=== PATIENT | male | born 1980 | race Caucasian/White ===

== ENCOUNTER 2023-07-30 23:18 | Inpatient (IN) | payer OTHER, SELFPAY ==
--- NOTE | ~2023-07-30 | XR_ITS ---
EXAMINATION: XR chest 1V portable DATE: 07/30/2023 23:46 INDICATION: Chest wall pain. TECHNIQUE: A single frontal view of the chest was obtained. COMPARISON: Chest 2 views 10/13/2018 FINDINGS: There is no pneumonia, pleural effusion, or pneumothorax. The heart size is normal. IMPRESSION: 1. No acute cardiopulmonary disease. Reviewed, dictated and finalized at location E.
--- NOTE | ~2023-07-30 | CT_ITS ---
Clinical Indication: Chest pain CT Scan of the Chest with Contrast: Technique: Contiguous sections were acquired throughout the chest after intravenous administration of 100 cc of Omnipaque 350. Dose reduction technique was used on this scan by utilizing automated expos ure control and iterative reconstruction technique. The dose-length product (DLP) was 594.11 mGy-cm. Findings: There is no evidence of any significant mediastinal, hilar or axillary lymphadenopathy. There is no f illing defect in the pulmonary arterial tree to suggest pulmonary embolus. There is no evidence of ao rtic dissection or aneurysm. There is no evidence of pleural or pericardial effusion. The lungs are clear. No pulmonary nodules or infiltrates are noted. Images through the upper abdomen reveal no abnormalities. Impression: No evidence of pulmonary embolus, aortic dissection, or aortic aneurysm. Clear lungs. Reviewed, dictated and finalized at [facility]. Impression: No evidence of pulmonary embolus, aortic dissection, or aortic aneurysm. Clear lungs.
[2023-07-30 23:17] VITALS: BP 140/86; PULSE 106; RESP 20; TEMP 36.8; O2SAT 96
--- NOTE | 2023-07-30 23:22 | ECG_ITS ---
Measurements Intervals [place] Rate: 90 P: 35 CO: 203 QRS: 53 QRSD: 96 T: 49 QT: 326 QTc: 400 Interpretive Statements SINUS RHYTHM NONSPECIFIC ST & T-WAVE ABNORMALITY POOR R WAVE PROGRESSION NO PREVIOUS ECG AVAILABLE FOR COMPARISON Electronically Signed On 07-31-2023 14:58:19 CDT by Jayshree Mays M.D.
[2023-07-30 23:29] VITALS: PULSE 90
[2023-07-30 23:33] VITALS: O2SAT 98
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
[2023-07-30 23:45] LABS: Basophils Percent Auto 0.6 % (0.2-1.2); Eosinophils Absolute Auto 0.1 K/mm3 (0-0.3); Eosinophils Percent Auto 1.9 % (0-4.4); Hemoglobin 12.9 g/dL (14.0-18.0); Immature Granulocyte Absolute 0.01 K/mm3 (0.00-0.031); Immature Granulocyte Percent A 0.2 % (0-0.5); Lymphocytes Absolute Auto 1.29 K/mm3 (0.9-3.2); Lymphocytes Percent Auto 20.1 % (18.3-44.2); Mean Corpuscular HGB Conc 33.9 g/dl (32-36); Mean Corpuscular Hemoglobin 33.2 pg (26-34); Mean Corpuscular Volume 97.9 fl (80-100); Monocytes Absolute Auto 0.4 K/mm3 (0.1-0.6); Monocytes Percent Auto 6.4 % (2.6-8.5); Neutrophils Absolute Auto 4.6 K/mm3 (1.3-6.7); Neutrophils Percent Auto 70.8 % (45.5-73.1); Platelet Count Result 181 k/mm3 (150-375); Red Blood Count 3.88 M/mm3 (4.6-6.20); Red Cell Distribution Width 11.6 % (11.5-14.5); White Blood Count 6.4 K/mm3 (4.5-10.0)
--- NOTE | 2023-07-30 23:45 | ED.SYNCOPE ---
HPI - Syncope General Chief Complaint: Syncope Stated Complaint: POST CARDIAC ARREST, ROSC IN FIELD Time Seen by Provider: 07/30/23 23:27 History of Present Illness [facility] narrative: Patient brought to the emergency department by EMS. He was ice-skating playing hockey. Skated across the rink and felt lightheaded. He did patient then had a syncopal event and was noted to be pulseless. 2 rounds of CPR and AED was placed. Shock was advised and patient received 1 shock. A third round of CPR was completed and the patient had return of vital signs and resolved asystole. Patient now alert and oriented x4. Denies any significant medical problems except having some bright red blood in his stool and saw his PCP over the past couple months only now complaining of chest wall pain. EMS contributed to the history Related Data Allergies Allergy/AdvReac Type Severity Reaction Status Date / Time No Known Allergies Allergy Unverified 03/19/23 20:00 Review of Systems Review of Systems: Review of systems negative except for what was documented in the HPI [facility] Past Medical History Medical History (Updated 07/31/23 @ 04:37 by Светлана Paul MD) No significant past medical history Surgical History Surgical History (Updated 03/20/23 @ 05:49 by Ray Khan MD) No significant past surgical history Social History Social History (Updated 03/20/23 @ 05:49 by Ray Khan MD) Smoking status: Never smoker Alcohol intake: current Drinks per week: 1 Substance use: never Exam Narrative: GENERAL: Well-appearing, well-nourished, and in no acute distress. HEAD: Normocephalic, atraumatic. EYES: PERRLA and EOMI. ENT: Nares clear, no rhinorrhea or epistaxis. Mucous membranes moist. NECK: Supple. CHEST: Clear to auscultation. No respiratory distress. wall tenderness HEART: Regular rate and rhythm. ABDOMEN: Soft, nontender, nondistended. EXTREMITIES: Normal range of motion. No edema. SKIN: Warm, dry, no rash. NEURO: No focal deficits. Alert and oriented x3. PSYCH: Normal mood and affect. Course Course Emergency Course: Differential diagnosis includes but not limited to CAD, electrolyte abnormality, PE Telemetry ordered due to asystole to evaluate for dysrhythmias. Evaluated by myself. Rhythm nsr Rate 90 Due to high probability of clinically significant lift threatening deterioration, the patient required my highest level of preparedness to intervene emergently. Critical care time documented not including procedures needed Vital Signs Vital signs: Vital Signs Temperature 36.8 C 07/30/23 23:17 Pulse Rate 106 H 07/30/23 23:17 Respiratory Rate 20 07/30/23 23:17 Blood Pressure 140/86 07/30/23 23:17 Pulse Oximetry 96 07/30/23 23:17 Oxygen Delivery Room Air 07/30/23 23:17 Temperature 36.8 C 07/30/23 23:17 Pulse Rate 83 07/31/23 03:05 Respiratory Rate 14 07/31/23 03:05 Blood Pressure 127/85 07/31/23 03:05 Pulse Oximetry 98 07/31/23 03:05 Oxygen Delivery Room Air 07/30/23 23:33 MDM - Syncope MDM Narrative Medical decision making narrative: Troponin and D-dimer elevated. CTA chest ordered and pending. Patient is comfortable. Due to cardiac event and elevated troponin, heparin drip ordered. We will plan for admission for cardiology consult [id number] CTA chest pending Lab Data 07/30/23 23:31 07/30/23 23:31 Labs: Lab Results 07/30/23 07/31/23 Range/Units 23:31 02:27 WBC 6.4 (4.5-10.0) K/mm3 RBC 3.88 L (4.6-6.20) M/mm3 Hgb 12.9 L (14.0-18.0) g/dL Hct 38.0 L (42.0-52.0) % MCV 97.9 (80-100) fl MCH 33.2 (26-34) pg MCHC 33.9 (32-36) g/dl RDW 11.6 (11.5-14.5) % Plt Count 181 (150-375) k/mm3 MPV 10.0 (7.4-10.4) fl Immature Gran % (Auto) 0.2 (0-0.5) % Neut % (Auto) 70.8 (45.5-73.1) % Lymph % (Auto) 20.1 (18.3-44.2) % [place] % (Auto) 6.4 (2.6-8.5) % Eos % (
[2023-07-30 23:57] LABS: Alanine Aminotransferase 86 U/L (6-50); Albumin Level 4.4 g/dL (3.5-5.1); Alkaline Phosphatase 45 U/L (38-126); Anion Gap 15 mmol/L (8-16); Aspartate Amino Transferase 68 U/L (17-59); Bilirubin,Total 0.8 mg/dL (0.2-1.3); Blood Urea Nitrogen 18 mg/dL (9-20); Calcium 9.2 mg/dL (8.4-10.2); Carbon Dioxide 19 mmol/L (22-30); Chloride 108 mmol/L (98-107); Estimated CRCL calculation 69 ml/min; Estimated Glomerular Filt Rate 60; Glucose 120 mg/dL (65-110); Potassium 3.4 mmol/L (3.4-5.0); Sodium 142 mmol/L (137-145)
[2023-07-31] VITALS (34 sets, daily range): BP systolic 112–157; BP diastolic 65–92; PULSE 61–86; RESP 12–24; TEMP 36.4–37.1; O2SAT 97–100; BMI 29.0
--- NOTE | 2023-07-31 | ECHO_ITS ---
Patient Info Name: Boo Davies Age: 43 years : 1980 Gender: Male Ht: 71 in Wt: 209 lbs BSA: 2.20 m2 HR: 82 bpm BP: 145 / 86 mmHg Heart Rhythm: Sinus Rhythm Technical Quality: Good Exam Date: 07/31/2023 3:10 PM Exam Location: [facility] Patient Status: Inpatient Admit Date: 07/31/2023 Staff Ordering Physician: Felicia Munoz DO Dowel Machine Operator: Katherine Freire RDCS Attending Provider: Felicia Munoz DO Referring Physician: Tammy ADEN; Exam Type: CA echo dop color flow w con Study Info Indications - Cardiac arrest Complete two-dimensional, color flow and Doppler transthoracic echocardiogram is performed with contrast to opacify the left ventricle and to improve the deliniation of the left ventricle endocardial borders. Contrast/Agitated Saline Contrast/Ag. Saline: Definity Amount: 2.00 ml Administered By: Katherine Freire RDCS Existing IV Access: Yes IV Access Condition: patent with no signs of infiltration Summary 1. Technically difficult study. Definity contrast administered. 2. Left ventricular chamber dimension is normal. 3. Left ventricular systolic function is normal, estimated at 60-65% with hypokinesis the apex and apical septum. No clearly visualized left ventricle apical thrombus identified although there was sluggish flow at the apex. 4. There is no increased left ventricular wall thickness. 5. The left ventricular diastolic function is normal. 6. There is mild mitral valve regurgitation. 7. There is trace tricuspid valve regurgitation. 8. No pulmonary hypertension, estimated pulmonary arterial systolic pressure is 26 mmHg. 9. There is no aortic valve stenosis. Left Ventricle Left ventricular chamber dimension is normal. Left ventricular systolic function is normal, estimated at 60-65% with hypokinesis the apex and apical septum. No clearly visualized left ventricle apical thrombus identified although there was sluggish flow at the apex. There is no increased left ventricular wall thickness. The left ventricular diastolic function is normal. Technically difficult study. Definity contrast administered. Right Ventricle Right ventricular chamber dimension is normal. Right ventricular systolic function is normal. Left Atria Left atrial chamber dimension is normal. Right Atria Right atrial chamber dimension is normal. Aortic Valve The aortic valve is trileaflet. There is no aortic valve stenosis. There is no aortic valve regurgitation. Pulmonic Valve The pulmonic valve is not well visualized. There is mild pulmonic regurgitation. Mitral Valve The mitral valve has normal leaflets. There is mild mitral valve regurgitation. Tricuspid Valve The tricuspid valve leaflets are normal. There is trace tricuspid valve regurgitation. No pulmonary hypertension, estimated pulmonary arterial systolic pressure is 26 mmHg. Inferior Vena Cava Normal inferior vena cava with <50% collapse upon inspiration consistent with elevated right atrial pressure, 10 mmHg. Aorta The aortic root size at the sinus of Valsalva is normal. Left Ventricular Outflow Tract Name Value Normal LVOT 2D LVOT Diameter 2.05 cm LVOT Doppler
--- NOTE | 2023-07-31 00:03 | PC.NURSE ---
called lab to add D-dimer on to the blue top that was already sent
[2023-07-31 00:11] LABS: Troponin I 0.064 ng/mL (0.000-0.034)
[2023-07-31] MEDS: HEPARIN SODIUM 5,000 UNITS/ML VIAL 4000 UNITS IV PUSH ×2 (04:06→14:44)
[2023-07-31] MEDS: HEPARIN SOD/D5W 100 UNITS/ML 25,000 UNITS/250 ML BAG 10 UNITS IV CONT (04:07)
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
[2023-07-31 04:57] LABS: Basophils Percent Auto 0.4 % (0.2-1.2); Eosinophils Percent Auto 0.1 % (0-4.4); Hematocrit 37.4 % (42.0-52.0); Hemoglobin 12.6 g/dL (14.0-18.0); Immature Granulocyte Absolute 0.06 K/mm3 (0.00-0.031); Immature Granulocyte Percent A 0.5 % (0-0.5); Lymphocytes Absolute Auto 0.71 K/mm3 (0.9-3.2); Lymphocytes Percent Auto 6.3 % (18.3-44.2); Mean Corpuscular HGB Conc 33.7 g/dl (32-36); Mean Corpuscular Hemoglobin 32.4 pg (26-34); Mean Corpuscular Volume 96.1 fl (80-100); Mean Platelet Volume 9.6 fl (7.4-10.4); Monocytes Absolute Auto 0.5 K/mm3 (0.1-0.6); Monocytes Percent Auto 4.4 % (2.6-8.5); Neutrophils Absolute Auto 9.9 K/mm3 (1.3-6.7); Neutrophils Percent Auto 88.3 % (45.5-73.1); Platelet Count Result 164 k/mm3 (150-375); Red Blood Count 3.89 M/mm3 (4.6-6.20); Red Cell Distribution Width 11.7 % (11.5-14.5); White Blood Count 11.2 K/mm3 (4.5-10.0)
[2023-07-31 05:04] LABS: INR 1.2; Prothrombin Time 15.4 Seconds (11.1-14.7)
[2023-07-31 05:07] LABS: Partial Thromboplastin Time 141.9 SECONDS (22.3-36.8)
--- NOTE | 2023-07-31 05:46 | ADMGEN ---
This patient, Boo Davies, was admitted to Intensive Care Unit-7. Patient/family oriented to hospital policies and general routines including ID bracelet, bed and alarms, visiting hours, pain management, procedures, bathroom and other care routines, personal items, smoking policy, room service/diet, and visiting hours. Information on how to activate the Rapid Response Team has been discussed. Patient/Family are encouraged to report perceived risks to care and to ask questions if they do not understand what they are told or what they should do.
[2023-07-31 06:59] LABS: Cholesterol 144 mg/dL (0-200); HDL Direct 41 mg/dL; Triglycerides 40 mg/dL (<150)
[2023-07-31 07:15] LABS: LDL Cholesterol Direct 83 mg/dL
[2023-07-31] MEDS: CHOLECALCIFEROL 1,000 UNITS TABLET 5000 UNITS PO (08:13)
[2023-07-31] MEDS: ASPIRIN 81 MG CHEWABLE TABLET 324 MG PO (08:15)
[2023-07-31] MEDS: ATORVASTATIN 40 MG TABLET PO (08:15)
--- NOTE | 2023-07-31 08:31 | WPDCNINT ---
Assessment and Plan Assessment and plan (1) Cardiac arrest: Code(s): I46.9 - Cardiac arrest, cause unspecified Status: Acute Assessment and Plan: Likely VFib/V-tach cardiac arrest since patient did receive defibrillation from the ED, Patient had a cardiac arrest while playing ice hockey, there was a EMS was also playing ice hockey, once patient collapsed CPR was started, patient received 2 rounds of CPR, 1 shock from the AICD and 1 more round of CPR post a ED before obtaining ROSC. -post ROSC patient was awake, alert, oriented and was brought to the ER. -EKG showed sinus rhythm -ER physician discussed with Cardiology, recommended starting aspirin, heparin infusion -cardiology has been consulted, await their recommendation, patient likely need ischemic workup (2) Acute non-ST elevation myocardial infarction (NSTEMI): Code(s): I21.4 - Non-ST elevation (NSTEMI) myocardial infarction Status: Acute Assessment and Plan: Patient with cardiac arrest and elevated troponin (0.064--> 1.670--> 2.840.) -continue heparin infusion -cardiology to evaluate (3) Essential hypertension: Code(s): I10 - Essential (primary) hypertension Status: Acute Assessment and Plan: Essential hypertension, currently blood pressures are stable patient was started on lisinopril (4) Transaminitis: Code(s): R74.01 - Elevation of levels of liver transaminase levels Status: Acute Assessment and Plan: Patient has mild elevation in LFTs, could be related to cardiac arrest. Patient also has history of hepatic steatosis which could be a cause. (5) Rectal bleed: Code(s): K62.5 - Hemorrhage of anus and rectum Status: Acute Assessment and Plan: Patient states he has bright red blood on the toilet tissue after bowel movements -his he was supposed to get a colonoscopy on 08/01/2023 -will have GI evaluate the patient -hemoglobin remains stable Plan DVT prophylaxis: Heparin infusion Stress ulcer prophylaxis: Famotidine Nutrition: NPO for now Code Status: Full code Critical Care Time Spent: 49 minutes Due to a high probability of clinically significant, life threatening deterioration, the patient required my highest level of preparedness to intervene emergently and I personally spent this critical care time directly and personally managing the patient. This critical care time included obtaining a history; examining the patient; pulse oximetry; ordering and review of studies; arranging urgent treatment with development of a management plan; evaluation of patient's response to treatment; frequent reassessment; and discussions with other providers. It was exclusive of separately billable procedures and treating other patients and teaching time. Please see Assessment and Plan section and the rest of the note for further information on patient assessment and treatment This dictation may have been done utilizing a voice recognition system. Attempts have been made to correct errors. However, there may be uncorrected grammatical, spelling, and recognitions errors present. Attorney Law Clerk Consult Note Consult date: 07/31/23 Reason for consult: Cardiac arrest HPI: Boo Davies is a 43 year old male with past medical history of hypertension, GERD, hyperlipidemia, seasonal allergies presented the ED on 07/30/2023 status post cardiac arrest with ROSC in the field. Patient apparently had 2 rounds of CPR followed by a shock from the ED additional round of CPR before ROSC. Post arrest patient was alert and oriented x3. According to records patient was playing ice hockey with a different team and since they were short on the players he was skating for a longer amount of time than normal and the playing at a brisk pace than he is used to. Patient stated that he felt lightheaded and possibly had a fall and does not remember anything until he woke up with people standing around him. Is also been complai
--- NOTE | 2023-07-31 09:54 | PM.CNCAR ---
Assessment and Plan Assessment and plan (1) Cardiac arrest with successful resuscitation: Code(s): I46.9 - Cardiac arrest, cause unspecified Status: Acute Assessment and Plan: Likely VT/VF given defibrillation from AED. Echocardiogram pending. Recommended cardiac catheterization. Discussed the procedure details with the patient, including indication for procedure, risks vs benefits, alternative management options. Patient agreeable. Will cath him today. (2) Acute non-ST elevation myocardial infarction (NSTEMI): Code(s): I21.4 - Non-ST elevation (NSTEMI) myocardial infarction Status: Acute Assessment and Plan: EKG on arrival shows sinus rhythm, nonspecific STTW abnormality. No prior EKG available for comparison. Initial troponin of 0.064 followed by 1.670 and then 2.840. Cardiac cath as noted above. (3) Essential hypertension: Code(s): I10 - Essential (primary) hypertension Status: Acute Assessment and Plan: Stable. On Lisinopril at home. (4) Hyperlipidemia: Code(s): E78.5 - Hyperlipidemia, unspecified Status: Acute Assessment and Plan: Continue high intensity statin. Plan Recommendations/plan discussed with Outboard Motorboat Rigger, Dr. Ma. History of Present Illness History of Present Illness Consult date/time: 07/31/23 09:54 Requesting physician: Светлана Paul MD Consult reason: Other (Cardiac arrest) Reason For Visit: NSTEMI Narrative: We are consulted for cardiac arrest. This is a pleasant 43 year old male with hypertension, hyperlipidemia, former smoker (quit in 2005) who presented after out of hospital cardiac arrest. Patient regularly plays hockey every week, and was playing hockey yesterday. Patient states that all of a sudden, he felt blurriness come over him and then fell to the ground. He does not remember falling. One of the other hockey players there works for [employer], and he started chest compressions on the patient immediately. He received 2 rounds of CPR before AED was placed, which then shocked him 1 time, and then he had 1 more round of chest compressions before obtaining ROSC. Patient states he regained consciousness there before coming into the ER. EKG on arrival shows sinus rhythm, nonspecific STTW abnormality. No prior EKG available for comparison. Patient this morning tells me he otherwise feels well, has pain in his ribs from the chest compressions. He otherwise denies any cardiac symptoms recently. He reports an episode of chest pain in 2018 that was worked up and work up was negative. Patient reports his mother and father had HTN and HLD, but no family history of heart attacks. ER workup showed initial troponin of 0.064 followed by 1.670 and then 2.840. LDL 83. CTA negative for acute findings. He has been started on ASA, Heparin drip. Review of Systems Review of Systems: All systems reviewed & are unremarkable except as noted in HPI and below (HPI) [facility] Past Medical History Medical History (Updated 07/31/23 @ 10:03 by Jayshree Mays MD) Essential hypertension GERD (gastroesophageal reflux disease) Hyperlipidemia Seasonal allergic rhinitis Surgical History Surgical History No significant past surgical history Family History Family History Mother Hypertension Father Elevated cholesterol Social History Social History Social History: He smoked between 215-20 cigarettes a day for approximately 7 years. He quit smoking in 2005. He drink moderate amount 3-5 beers a day during the week and heavier on weekends. He quit drinking May 2023 when he noticed some rectal bleeding. He has used marijuana on occasion. Code status: Full code Surrogate decision maker: Smoking packs per day: 1 Smoking cigarettes per day: 20.0 Years smoked: 7 Smoking
[2023-07-31] MEDS: SODIUM CHLORIDE 0.9% IV 1,000 ML 125 ML IV CONT (11:23)
--- NOTE | 2023-07-31 11:29 | WPDMODSED ---
Moderate Sedation Note-Pt Data Patient Data Diagnosis: Cardiac arrest Present Complaint: Cardiac arrest Procedure to be performed/Plan: Coronary angiography, left heart cath, +/- PCI Allergies Allergy/AdvReac Type Severity Reaction Status Date / Time No Known Allergies Allergy Unverified 03/19/23 20:00 Home Medications Medication Instructions Recorded Confirmed Type atorvastatin 40 mg tablet 40 mg PO DAILY 07/31/23 07/31/23 History cetirizine 10 mg tablet (Zyrtec) 10 mg PO DAILY 07/31/23 07/31/23 History cholecalciferol (vitamin D3) 125 125 mcg PO DAILY 07/31/23 07/31/23 History mcg (5,000 unit) tablet famotidine 40 mg tablet (Pepcid) 40 mg PO DAILY PRN Allergic 07/31/23 07/31/23 History Reaction lisinopril 40 mg tablet 40 mg PO DAILY 07/31/23 07/31/23 History Current Medications: Active Medications Aspirin (Aspirin 81 Mg Enteric Tablet) 81 mg PO QAM [facility] Last Admin: 07/31/23 08:15 Dose: Not Given Atorvastatin Calcium (Atorvastatin 40 Mg Tablet) 40 mg PO DAILY [facility] Last Admin: 07/31/23 08:15 Dose: 40 mg Famotidine (Famotidine 20 Mg Tablet) 40 mg PO DAILY PRN PRN Reason: Allergic Reaction Heparin Sodium (Porcine) (Heparin Sodium 5,000 Units/Ml Vial) 3,000 units IV PUSH PRN PRN PRN Reason: aPTT 55 - 70 seconds Heparin Sodium (Porcine) (Heparin Sodium 5,000 Units/Ml Vial) 4,000 units IV PUSH PRN PRN PRN Reason: aPTT less than 55 seconds Heparin Sodium/Dextrose (Heparin Sodium/D5w 100 Units/Ml) 25,000 units in 250 mls @ 10 mls/hr IV CONT .Q24H [facility]; Protocol Stop: 07/31/23 18:27 Last Admin: 07/31/23 04:07 Dose: 1,000 units/hr, 10 mls/hr Sodium Chloride (Normal Saline Iv) 1,000 mls @ 125 mls/hr IV CONT .Q8H ONE Stop: 07/31/23 18:42 Last Admin: 07/31/23 11:23 Dose: 125 mls/hr Lisinopril (Lisinopril 20 Mg Tablet) 40 mg PO DAILY YURI Loratadine (Loratadine 10 Mg Tablet) 10 mg PO DAILY YURI Last Admin: 07/31/23 08:15 Dose: Not Given Perflutren Lipid Microsphere (Perflutren Lipid Microspheres 1.5 Ml Vial Diluted To 10 Ml Total Volume) 0 ml IV PUSH ONCE PRN; Protocol PRN Reason: adequate visualization Stop: 08/03/23 04:38 Vitamin D (Cholecalciferol 1,000 Units Tablet) 5,000 units PO DAILY YURI Last Admin: 07/31/23 08:13 Dose: 5,000 units Sedation/Anesthesia: No previous sedation/anesthesia problems (including family history). [facility] Past Medical History Medical History Essential hypertension GERD (gastroesophageal reflux disease) Hyperlipidemia Seasonal allergic rhinitis Surgical History Surgical History No significant past surgical history Family History Family History Mother Hypertension Father Elevated cholesterol Social History Social History Social History: He smoked between 215-20 cigarettes a day for approximately 7 years. He quit smoking in 2005. He drink moderate amount 3-5 beers a day during the week and heavier on weekends. He quit drinking May 2023 when he noticed some rectal bleeding. He has used marijuana on occasion. Code status: Full code Surrogate decision maker: Smoking packs per day: 1 Smoking cigarettes per day: 20.0 Years smoked: 7 Smoking pack-years: 7.00 Smoking status: Former smoker Alcohol intake: current Drinks per week: 1 Alcohol use details: Patient you strength 3-5 beers a day on weekdays and up to 8 on weekends. Cut back to rare alcohol use May 2023. Substance use: never Substance use type: marijuana Lack of Transportation: No Lack of Food: Never True Current Housing: I Have Housing Concerned About Future Housing: No Difficulty Paying Gas/Electric Bills: No Difficulty Paying for Meds: No Currently Unemployed: No Education: Decline to Answer Difficulty w/ Childcare or F
--- NOTE | 2023-07-31 11:44 | WPDCARDPROC ---
Cardiac Cath Procedure Note Date of procedure:: 07/31/23 Performing physician:: CATHETERIZATION LABORATORY REPORT Procedure Date: 07/31/2023 Ground Support Agent: Jayshree Mays M.D., [facility]? Referring Physician: Jayshree Mays M.D. ? Anesthesia: Versed and Fentanyl were ordered and given in my presence at 10:03, procedure ended at 10:30. Supervision of nurse monitored moderate sedation with Versed and Fentanyl was provided for 27 minutes. Total of Versed 1mg and Fentanyl 25mcg were administered by the Investment Manager RN Katina Neumann. Pre-op Diagnosis: Cardiac arrest Post-op Diagnosis: 1. 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 There are [id number] collaterals to the diagonal branches. 2. Moderate stenosis in the mid portion of OM vessel. 3. Mild diffuse disease of the RCA. 4. Elevated left ventricular end-diastolic pressure of 31mmHg Procedure(s): 1. Moderate sedation 2. Ultrasound-guided access of the right common femoral artery 3. Coronary angiography 4. Left heart cath Access Site: Right common femoral artery (Right radial artery was not accessed as we are out of TR bands) Brief History and Clinical Indications: Patient is a 43 year old male with hypertension, hyperlipidemia, former smoker who is referred for [facility] for out of hospital cardiac arrest. All risks, benefits and alternatives to left heart catheterization with or without percutaneous coronary intervention was discussed at length with the patient. Risk of complications including but not limited to bleeding, infection, arrhythmia, stroke, worsening kidney function, blood loss, groin hematoma, limb loss, emergency coronary artery bypass grafting, and even were discussed with the patient and all questions were answered. The patient understood and wished to proceed. Time out called, patient name, date of , medical record number, allergies, procedure performed, identify Ground Support Agent, patient and staff member concurred with accurate data, procedure carried on. Findings: LEFT HEART CATHETERIZATION FINDINGS: 1. Left main: The left main coronary artery is widely patent without any significant obstructive disease. 2. Left anterior descending: The proximal LAD has diffuse mild disease. There is a subtotal occlusion in the mid LAD distal to the small second diagonal branch followed by complete occlusion. This appears to be a chronic total occlusion. There are [id number] collaterals to the diagonal branches with well-developed myjae-dn-yiwc collaterals providing retrograde flow to the distal LAD, with flow going back to almost the mid LAD. There is a large caliber first diagonal branch that has a high proximal origin off the LAD. This diagonal branch has luminal irregularities without any obstructive disease. 3. Left circumflex: The left circumflex artery has luminal irregularities without any significant obstructive angiographic disease. There is an OM vessel with a moderate 50% stenosis in its mid portion. 4. Right coronary artery: The RCA is the dominant vessel. The RCA has diffuse mild disease without any significant obstructive angiographic disease. There are well-developed septal collaterals from the RCA providing flow to the distal and mid LAD. 5. Left ventricle: A. End-diastolic pressure 31mmHg. B. LV gram deferred. C. No significant gradient across aortic valve on catheter pullback. Description of Procedure: Informed consent signed and placed in the chart. Patient transferred to general labor room. Prepped and draped in usual sterile fashion. 2% lidocaine in right groin area. Micropuncture needle used to access right common femoral artery under ultrasound guidance. J wire advanced, micropuncture cannula placed. Right iliofemoral angiogram performed, access confirmed and micropuncture cannula exchanged for 5-FR sheath. 5F FL 4 diagnostic catheter engaged Left Main Coronary Artery. 5F FR 4 diagnostic catheter engaged Right Co
[2023-07-31 14:14] LABS: Hematocrit 37.7 % (42.0-52.0); Hemoglobin 12.7 g/dL (14.0-18.0); Mean Corpuscular HGB Conc 33.7 g/dl (32-36); Mean Corpuscular Hemoglobin 32.2 pg (26-34); Mean Corpuscular Volume 95.7 fl (80-100); Mean Platelet Volume 9.8 fl (7.4-10.4); Platelet Count Result 152 k/mm3 (150-375); Red Blood Count 3.94 M/mm3 (4.6-6.20); Red Cell Distribution Width 11.6 % (11.5-14.5); White Blood Count 7.4 K/mm3 (4.5-10.0)
[2023-07-31 14:25] LABS: Partial Thromboplastin Time 35.6 SECONDS (22.3-36.8)
[2023-07-31 14:29] LABS: Alanine Aminotransferase 64 U/L (6-50); Albumin Level 3.9 g/dL (3.5-5.1); Alkaline Phosphatase 40 U/L (38-126); Anion Gap 8 mmol/L (8-16); Aspartate Amino Transferase 50 U/L (17-59); Blood Urea Nitrogen 12 mg/dL (9-20); Calcium 8.6 mg/dL (8.4-10.2); Carbon Dioxide 23 mmol/L (22-30); Chloride 107 mmol/L (98-107); Estimated CRCL calculation 98 ml/min; Estimated Glomerular Filt Rate > 60; Glucose 144 mg/dL (65-110); Potassium 3.2 mmol/L (3.4-5.0); Sodium 138 mmol/L (137-145)
[2023-07-31] MEDS: POTASSIUM CHLORIDE 20 MEQ ER TABLET 40 MEQ PO (14:44)
--- NOTE | 2023-07-31 14:44 | WPDGICN ---
Assessment and Plan Assessment and plan (1) Rectal bleed: Code(s): K62.5 - Hemorrhage of anus and rectum Status: Acute Assessment and Plan: rectal bleeding with history most consistent with hemorrhoidal bleeding. To evaluate more thoroughly elective colonoscopy is advised. I would defer this until he is healed from his acute NH. Perhaps in several months. High-fiber diet stool softeners advised. Should patient have active bleeding would consider more urgent investigation. But this will be deferred at present. I discussed case with telecommunication operator who agrees at present. (2) Cardiac arrest: Code(s): I46.9 - Cardiac arrest, cause unspecified Status: Acute Assessment and Plan: Patient suffered cardiopulmonary arrest. Appears to have recovered well. Now status post NH. (3) Acute non-ST elevation myocardial infarction (NSTEMI): Code(s): I21.4 - Non-ST elevation (NSTEMI) myocardial infarction Status: Acute Assessment and Plan: cardiology following post NH. GI Consult Note Consult date/time: 07/31/23 14:44 Reason for consult: History of rectal bleeding HPI: Boo Davies is a 43 year old male admitted the hospital with an acute cardiopulmonary arrest. Apparently playing hockey suffered cardiopulmonary arrest. Upon being brought to the hospital was felt to have had an NH. patient reports since June he has had intermittent bright red blood per rectum with wiping. States this not been present for the last several weeks. He anticipated elective outpatient colonoscopy. But this had not yet been accomplished. Patient denies any family history of colon polyps or cancer. Review of Systems Review of Systems: Review of systems noncontributory. [facility] Past Medical History Medical History Essential hypertension GERD (gastroesophageal reflux disease) Hyperlipidemia Seasonal allergic rhinitis Surgical History Surgical History No significant past surgical history Family History Family History Mother Hypertension Father Elevated cholesterol Social History Social History Social History: He smoked between 215-20 cigarettes a day for approximately 7 years. He quit smoking in 2005. He drink moderate amount 3-5 beers a day during the week and heavier on weekends. He quit drinking May 2023 when he noticed some rectal bleeding. He has used marijuana on occasion. Code status: Full code Surrogate decision maker: Smoking packs per day: 1 Smoking cigarettes per day: 20.0 Years smoked: 7 Smoking pack-years: 7.00 Smoking status: Former smoker Alcohol intake: current Drinks per week: 1 Alcohol use details: Patient you strength 3-5 beers a day on weekdays and up to 8 on weekends. Cut back to rare alcohol use May 2023. Substance use: never Substance use type: marijuana Lack of Transportation: No Lack of Food: Never True Current Housing: I Have Housing Concerned About Future Housing: No Difficulty Paying Gas/Electric Bills: No Difficulty Paying for Meds: No Currently Unemployed: No Education: Decline to Answer Difficulty w/ Childcare or Family Care: No Additional living arrangements comments: He lives with his and 2 children. They have been for 10 years. 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
[2023-07-31] MEDS: PERFLUTREN LIPID MICROSPHERES 1.5 ML VIAL DILUTED TO 10 ML TOTAL VOLUME IV PUSH (15:39)
--- NOTE | 2023-07-31 16:34 | IVDEFINITY ---
Prior to administration of IV Definity the patient was educated on the risks and benefits of the imaging enhancing agent including potential adverse side effects. The patient verbalized understanding. Allergies were verified. No exclusion criteria were identified and at least one of the following inclusion criteria were met: 1) physician request, 2) patient technically difficult to image (per the [place] [employer] Echocardi[employer] guidelines of two or more segments not discernable within the apical view), or 3) questionable left ventricular function. ?
[2023-07-31 21:15] LABS: Partial Thromboplastin Time 71.8 SECONDS (22.3-36.8)
--- NOTE | 2023-07-31 22:10 | PC.NURSE ---
2146 [facility] service notified of pt transfer to [facility] stepdown unit room 321. ETA 2330. 2200 [address]arin [address] off [address] Dr. Mays's order. 2207 Report called to GOYO Murrell at [phone]. Dr. Zamudio is accepting physician. Visiting hours are [id number], pt can have one overnight visitor. Pt notified his Nico of transfer.
--- NOTE | 2023-07-31 22:33 | PC.NURSE ---
2229. Left message for Dr. Mays that pt is transferring to [facility].
[2023-08-01] VITALS: BP 127/83; PULSE 65; PULSE 66; RESP 14; TEMP 36.9; O2SAT 98
--- NOTE | 2023-08-01 01:08 | PC.NURSE ---
[facility] transferred pt to E stepdown room 321 at 0100. Notified [facility] that pt was en route.
--- NOTE | 2023-08-21 13:48 | P.TS_ITS ---
Transfer Discharge Sum: Prov Provider Date of admission: 07/31/23 04:50 Primary care physician: Buster Garcia, DO Admitting clinician: Felicia Munoz DO Attending physician on admission: Felicia Munoz Consults: 07/31/23 Consult to Physician Routine Comment: Consulting Provider: Alma Delia Manrique Reason for consultation: cardiac arrest Has provider been notified: Yes 07/31/23 08:47 Consult to Physician Routine Comment: spoke with Sandra in the Gi Lab @[phone](ER,US) Consulting Provider: Tyrese Hauser call worker person/MD group to consult: GI Reason for consultation: Rectal bleed Has provider been notified: Yes Attending physician on discharge: Felicia Munoz Discharging clinician: Jayshree Mays Anticipated date of transfer: 07/31/23 Receiving physician/facility: [facility] DS: Admitting Diagnosis Discharge Date 08/01/23 Admitting Diagnosis Cardiac arrest Transfer Discharge Sum: Med Medications Active and Home Medications: Home Medications atorvastatin 40 mg tablet 40 mg PO DAILY 07/31/23 [History Confirmed 07/31/23] cetirizine 10 mg tablet (Zyrtec) 10 mg PO DAILY 07/31/23 [History Confirmed 07/31/23] cholecalciferol (vitamin D3) 125 mcg (5,000 unit) tablet 125 mcg PO DAILY 07/31/23 [History Confirmed 07/31/23] famotidine 40 mg tablet (Pepcid) 40 mg PO DAILY PRN Allergic Reaction 07/31/23 [History Confirmed 07/31/23] lisinopril 40 mg tablet 40 mg PO DAILY 07/31/23 [History Confirmed 07/31/23] Transfer Discharge Sum: Hosp Hospital Course Hospital course: Patient presented after VT/VF cardiac arrest. Cardiac catheterization 07/31 showed: 1. 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 There are [id number] collaterals to the diagonal branches. 2. Moderate stenosis in the mid portion of OM vessel. 3. Mild diffuse disease of the RCA. 4. Elevated left ventricular end-diastolic pressure of 31mmHg It appears that the LAD occlusion is a chronic occlusion rather than an acute occlusion given the well-developed collateral system. Given this, and since patient is chest pain free, EKG without ischemic changes, will plan for medical management of his coronary artery disease with ASA, Plavix, high intensity statin. Given presumed VT/VF cardiac arrest, discussed with EP Dr. Matt regarding ICD evaluation. Patient would need to be transferred for ICD as we do not do ICDs here at [facility]. Patient transferred to [facility] for EP services. Time Spent with Patient Time attestation: Total time spent providing and/or coordinating transfer services: Exam Narrative: See cardiology consultation note for exam
== END 2023-08-01 01:00 | disposition short-term general hospital (02) | DRG 280 ==
LOC: ANHED 07-31 04:37 → ANHICU 07-31 05:00
PROVIDERS: Internal Medicine; Admitting Provider Internal Medicine; Emergency Provider Emergency Medicine; PCP Student in an Organized Health Care Education/Training Program; Visit Provider Internal Medicine
PROC: 4A023N7 Measurement of Cardiac Sampling and Pressure, Left Heart, Percutaneous Approach (ICD-10-PCS; CPT 93452; principal; 2023-07-31 09:30)
DX: I21.4 Non-ST elevation (NSTEMI) myocardial infarction (principal); I46.2 Cardiac arrest due to underlying cardiac condition; K62.5 Hemorrhage of anus and rectum; I25.10 Atherosclerotic heart disease of native coronary artery without angina pectoris; E78.5 Hyperlipidemia, unspecified; I10 Essential (primary) hypertension; K21.9 Gastro-esophageal reflux disease without esophagitis; K76.0 Fatty (change of) liver, not elsewhere classified; Z87.891 Personal history of nicotine dependence
CPT/HCPCS: 36415; 71045; 71275; 80053; 80061; 84484; 85025; 85027; 85380; 85610; 85730; 93005; 93458; 96365; 99285; A9270; C1887; C1894; C8929; J1644; J2250; J3010; J7030; J7040; Q9957; Q9967

== ENCOUNTER 2024-01-03 11:00 | Outpatient (RCR) | payer OTHER, SELFPAY ==
[2023-10-19 15:12] VITALS: BP 140/80; PULSE 50; RESP 18; O2SAT 100
[2023-10-19 15:38] VITALS: PULSE 50
== END 2024-01-03 11:20 | disposition home or self-care (01) ==
LOC: ANHCPREHAB 11:00
PROVIDERS: PCP Student in an Organized Health Care Education/Training Program; Visit Provider Internal Medicine
DX: I25.2 Old myocardial infarction (principal)
CPT/HCPCS: 93798